=== PATIENT | male | born 1965 | race Caucasian/White ===

== ENCOUNTER 2018-08-09 23:42 | Inpatient (IN) ==
[2018-08-09] MEDS ORDERED: Sod Chloride 0.9% Inj 1,000 ML IV.SIG SCH (23:45)
[2018-08-09] MEDS ORDERED: Morphine Sulfate Inj 2 MG/ML Vial IV.PUSH ONE (23:50)
[2018-08-09] MEDS ORDERED: Orphenadrine Inj 60 MG/2 ML Ampul IM ONE (23:50)
[2018-08-09] MEDS ORDERED: Diphtheria/Tetanus/Pertussis Vaccine Inj 0.5 ML Syringe IM ONE (23:53)
[2018-08-10 00:01] LABS: Baso % (Auto) 0.5 % (0.0-2.0); Eos # (Auto) 0.2 th/mm3 (0.0-0.4); Eos % (Auto) 2.4 % (0.0-4.0); Hematocrit 45.6 % (39.0-51.0); Hemoglobin 15.4 gm/dL (13.0-17.0); Lymph % (Auto) 31.3 % (9.0-44.0); Mean Corpuscular HGB Conc 33.7 % (32.0-36.0); Mean Corpuscular Hemoglobin 31.7 pg (27.0-34.0); Mean Corpuscular Volume 94.1 fL (80.0-100.0); Mean Platelet Volume 7.9 fL (7.0-11.0); Mono # (Auto) 0.5 th/mm3 (0.0-0.9); Mono % (Auto) 7.9 % (0.0-8.0); Neut # (Auto) 3.8 th/mm3 (1.8-7.7); Neut % (Auto) 57.9 % (16.0-70.0); Platelet Count 284 th/mm3 (150-450); Red Blood Count 4.85 mil/mm3 (4.50-5.90); Red Cell Distribution Width 14.3 % (11.6-17.2); White Blood Count 6.5 th/mm3 (4.0-11.0)
[2018-08-10 00:18] LABS: Alanine Aminotransferase 57 U/L (12-78); Albumin 3.7 g/dL (3.4-5.0); Anion Gap 9 meq/L (5-15); Aspartate Aminotransferase 35 U/L (15-37); Blood Urea Nitrogen 6 mg/dL (7-18); Calcium 8.4 mg/dL (8.5-10.1); Carbon Dioxide 27.2 meq/L (21.0-32.0); Chloride 111 meq/L (98-107); Glomerular Filtration Rate Greater Than 89 mL/min (>89); Glucose,Random 113 mg/dL (74-106); Sodium 147 meq/L (136-145)
[2018-08-10 00:21] LABS: Alkaline Phosphatase 98 U/L (45-117); Creatine Kinase 270 U/L (39-308); Total Protein 7.5 g/dL (6.4-8.2)
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
[2018-08-10 00:36] LABS: Creatine Kinase MB 2.1 ng/mL (0.5-3.6)
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
[2018-08-10] MEDS ORDERED: Ketorolac Inj 30 MG/ML (IVP) Vial IV.PUSH ONE (00:43)
[2018-08-10] MEDS ORDERED: Sod Chloride 0.9% Inj 1,000 ML IV.SIG ONE ×2 (01:06→04:01)
[2018-08-10] MEDS ORDERED: Acetaminophen 500 MG Tablet PO ONE (04:01)
[2018-08-10] MEDS ORDERED: Morphine Inj 4 MG, Morphine Inj 2 MG IV.PUSH ONE ×2 (05:58)
[2018-08-10 06:40] LABS: Amphetamine Screen,Urine Neg (Neg); Barbiturate Screen,Urine Neg (Neg); Cannabinoid Screen,Urine Neg (Neg); Cocaine Screen,Urine Pos (Neg)
[2018-08-10 06:43] LABS: Bilirubin,Urine Negative (Negative); Clarity,Urine Clear (Clear); Color,Urine Yellow (Yellw/Straw); Glucose,Urine (UA) Negative (Negative); Hyaline Casts,Urine 1 /lpf (0-3); Leukocyte Esterase,Urine Negative (Negative); Mucus,Urine Few /lpf (Occasional); Nitrite,Urine Negative (Negative); Specific Gravity,Urine 1.015 (1.002-1.035)
[2018-08-10 06:49] LABS: Opiate Screen,Urine Pos (Neg)
[2018-08-10 07:43] LABS: CKMB Percent 0.6 % (0.0-4.0); Creatine Kinase MB 4.7 ng/mL (0.5-3.6)
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
[2018-08-10] MEDS ORDERED: HYDROmorphone PF Inj 2 MG/ML Vial IV.PUSH ONE (08:39)
[2018-08-10] MEDS ORDERED: Morphine Inj 4 MG/ML Vial IV.PUSH PRN ×2 (09:10)
[2018-08-10] MEDS ORDERED: Bisacodyl 10 MG Supp RECTAL PRN (09:10)
[2018-08-10] MEDS ORDERED: Naloxone Inj 0.4 MG/ML Vial IV.PUSH PRN (09:10)
[2018-08-10] MEDS ORDERED: Acetaminophen 325 MG Tablet PO PRN (09:10)
[2018-08-10] MEDS ORDERED: Haloperidol Inj 5 MG/ML Ampul IV.PUSH PRN (09:15)
[2018-08-10] MEDS: Sod Chloride 0.9% Inj 1,000 ML IV.CONT SCH (09:25)
[2018-08-10 09:42] LABS: Hematocrit 38.7 % (39.0-51.0); Mean Corpuscular HGB Conc 33.7 % (32.0-36.0); Mean Corpuscular Hemoglobin 32.3 pg (27.0-34.0); Mean Corpuscular Volume 95.9 fL (80.0-100.0); Mean Platelet Volume 8.5 fL (7.0-11.0); Platelet Count 237 th/mm3 (150-450); Red Blood Count 4.03 mil/mm3 (4.50-5.90); Red Cell Distribution Width 14.3 % (11.6-17.2); White Blood Count 8.8 th/mm3 (4.0-11.0)
[2018-08-10 10:16] LABS: Anion Gap 11 meq/L (5-15); Blood Urea Nitrogen 6 mg/dL (7-18); Calcium 7.6 mg/dL (8.5-10.1); Carbon Dioxide 22.4 meq/L (21.0-32.0); Chloride 110 meq/L (98-107); Glomerular Filtration Rate Greater Than 89 mL/min (>89); Glucose,Random 71 mg/dL (74-106); Potassium 3.4 meq/L (3.5-5.1); Sodium 143 meq/L (136-145)
[2018-08-10] MEDS: Lisinopril 20 MG Tablet PO SCH (10:22)
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
[2018-08-10 12:10] LABS: Creatine Kinase 697 U/L (39-308); Free T4 (Free Thyroxine) 0.84 ng/dL (0.76-1.46)
[2018-08-10 12:31] LABS: Hemoglobin A1c 5.6 % (4.3-6.0)
[2018-08-10] MEDS: LORazepam 1 MG Tablet PO PRN ×2 (12:36→22:34)
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
[2018-08-10] MEDS: Morphine Inj 4 MG/ML Vial IV.PUSH PRN ×2 (16:09→21:00)
[2018-08-10] MEDS: oxyCODONE/Acetaminophen 10/325 Tablet PO PRN ×2 (16:10→22:34)
[2018-08-10 20:03] LABS: Creatine Kinase 538 U/L (39-308)
[2018-08-10 20:22] LABS: CKMB Percent 0.3 % (0.0-4.0); Creatine Kinase MB 1.8 ng/mL (0.5-3.6)
[2018-08-10] MEDS: Senna/Docusate Sodium 8.6/50 MG Tablet PO SCH (20:59)
[2018-08-10] MEDS: Famotidine 20 MG Tablet PO SCH (20:59)
[2018-08-10] MEDS ORDERED: Influenza (Quadrivalent) Vaccine 0.5 ML Syringe IM ONE (21:00)
[2018-08-11] MEDS: Morphine Inj 4 MG/ML Vial IV.PUSH PRN (01:27)
[2018-08-11] MEDS: Sod Chloride 0.9% Inj 1,000 ML IV.CONT SCH ×4 (01:30→16:57)
[2018-08-11] MEDS: oxyCODONE/Acetaminophen 10/325 Tablet PO PRN ×4 (04:37→19:53)
[2018-08-11] MEDS: LORazepam 1 MG Tablet PO PRN (04:41)
[2018-08-11 05:46] LABS: Baso % (Auto) 0.4 % (0.0-2.0); Eos # (Auto) 0.4 th/mm3 (0.0-0.4); Eos % (Auto) 4.2 % (0.0-4.0); Hemoglobin 12.8 gm/dL (13.0-17.0); Lymph # (Auto) 1.5 th/mm3 (1.0-4.8); Lymph % (Auto) 17.9 % (9.0-44.0); Mean Corpuscular HGB Conc 34.6 % (32.0-36.0); Mean Corpuscular Hemoglobin 32.3 pg (27.0-34.0); Mean Corpuscular Volume 93.3 fL (80.0-100.0); Mean Platelet Volume 8.2 fL (7.0-11.0); Mono # (Auto) 0.7 th/mm3 (0.0-0.9); Mono % (Auto) 8.5 % (0.0-8.0); Neut # (Auto) 5.8 th/mm3 (1.8-7.7); Platelet Count 193 th/mm3 (150-450); Red Blood Count 3.97 mil/mm3 (4.50-5.90); White Blood Count 8.4 th/mm3 (4.0-11.0)
[2018-08-11 06:18] LABS: Prothrombin Time 10.4 sec (9.8-11.6)
[2018-08-11 06:23] LABS: Alanine Aminotransferase 32 U/L (12-78); Albumin 2.9 g/dL (3.4-5.0); Alkaline Phosphatase 86 U/L (45-117); Anion Gap 8 meq/L (5-15); Aspartate Aminotransferase 19 U/L (15-37); Blood Urea Nitrogen 7 mg/dL (7-18); Calcium 7.7 mg/dL (8.5-10.1); Chloride 108 meq/L (98-107); Glomerular Filtration Rate Greater Than 89 mL/min (>89); Glucose,Random 84 mg/dL (74-106); Magnesium 1.7 mg/dL (1.5-2.5); Phosphorus 2.8 mg/dL (2.5-4.9); Potassium 3.4 meq/L (3.5-5.1); Sodium 142 meq/L (136-145); Total Protein 6.2 g/dL (6.4-8.2)
[2018-08-11] MEDS: Morphine Sulfate Inj 2 MG/ML Vial IV.PUSH PRN ×4 (08:13→22:20)
[2018-08-11] MEDS: Multivitamin/Minerals Therapeutic Tablet PO SCH (08:14)
[2018-08-11] MEDS: Senna/Docusate Sodium 8.6/50 MG Tablet PO SCH ×2 (08:14→20:17)
[2018-08-11] MEDS: Famotidine 20 MG Tablet PO SCH ×2 (08:14→20:17)
[2018-08-11] MEDS: Lisinopril 20 MG Tablet PO SCH (08:14)
[2018-08-11] MEDS: Folic Acid 1 MG Tablet PO SCH (08:14)
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
[2018-08-11] MEDS: LORazepam 0.5 MG Tablet PO PRN (16:58)
[2018-08-12] MEDS: oxyCODONE/Acetaminophen 10/325 Tablet PO PRN ×6 (00:15→20:54)
[2018-08-12] MEDS: LORazepam 0.5 MG Tablet PO PRN (01:23)
[2018-08-12] MEDS: Morphine Inj 4 MG/ML Vial IV.PUSH PRN (02:03)
[2018-08-12] MEDS: Morphine Sulfate Inj 2 MG/ML Vial IV.PUSH PRN ×3 (05:07→14:03)
[2018-08-12 05:36] LABS: Alanine Aminotransferase 30 U/L (12-78); Albumin 2.9 g/dL (3.4-5.0); Anion Gap 7 meq/L (5-15); Aspartate Aminotransferase 23 U/L (15-37); Blood Urea Nitrogen 5 mg/dL (7-18); Calcium 8.2 mg/dL (8.5-10.1); Carbon Dioxide 27.2 meq/L (21.0-32.0); Chloride 105 meq/L (98-107); Glomerular Filtration Rate Greater Than 89 mL/min (>89); Glucose,Random 77 mg/dL (74-106); Magnesium 1.9 mg/dL (1.5-2.5); Phosphorus 3.2 mg/dL (2.5-4.9); Potassium 3.9 meq/L (3.5-5.1); Sodium 139 meq/L (136-145)
[2018-08-12 05:37] LABS: Alkaline Phosphatase 90 U/L (45-117); Total Protein 6.7 g/dL (6.4-8.2)
[2018-08-12] MEDS: Sod Chloride 0.9% Inj 1,000 ML IV.CONT SCH ×2 (07:49→12:45)
[2018-08-12] MEDS: Famotidine 20 MG Tablet PO SCH ×2 (08:11→20:53)
[2018-08-12] MEDS: Senna/Docusate Sodium 8.6/50 MG Tablet PO SCH (08:11)
[2018-08-12] MEDS: Lisinopril 20 MG Tablet PO SCH (08:11)
[2018-08-12] MEDS: Folic Acid 1 MG Tablet PO SCH (08:11)
[2018-08-12] MEDS: Multivitamin/Minerals Therapeutic Tablet PO SCH (08:13)
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
[2018-08-13] MEDS: oxyCODONE/Acetaminophen 10/325 Tablet PO PRN ×6 (00:49→22:04)
[2018-08-13] MEDS: Sod Chloride 0.9% Inj 1,000 ML IV.CONT SCH ×3 (08:43→19:16)
[2018-08-13] MEDS: Senna/Docusate Sodium 8.6/50 MG Tablet PO SCH ×3 (08:43→22:04)
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
[2018-08-13] MEDS: Lisinopril 20 MG Tablet PO SCH (09:40)
[2018-08-13] MEDS: Folic Acid 1 MG Tablet PO SCH (09:40)
[2018-08-13] MEDS: Famotidine 20 MG Tablet PO SCH ×2 (09:40→22:04)
[2018-08-13] MEDS: Multivitamin/Minerals Therapeutic Tablet PO SCH (09:41)
[2018-08-14] MEDS: oxyCODONE/Acetaminophen 10/325 Tablet PO PRN ×6 (02:11→22:44)
[2018-08-14] MEDS: Sod Chloride 0.9% Inj 1,000 ML IV.CONT SCH ×3 (07:55→23:45)
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
[2018-08-14] MEDS: Famotidine 20 MG Tablet PO SCH ×2 (09:44→20:46)
[2018-08-14] MEDS: Senna/Docusate Sodium 8.6/50 MG Tablet PO SCH ×2 (09:44→20:46)
[2018-08-14] MEDS: Lisinopril 20 MG Tablet PO SCH (09:44)
[2018-08-14] MEDS: Folic Acid 1 MG Tablet PO SCH (09:44)
[2018-08-14] MEDS: Multivitamin/Minerals Therapeutic Tablet PO SCH (09:48)
[2018-08-15] MEDS: oxyCODONE/Acetaminophen 10/325 Tablet PO PRN ×4 (02:44→14:40)
[2018-08-15 08:45] VITALS: RESP 20; TEMP 98.2
[2018-08-15] MEDS: Folic Acid 1 MG Tablet PO SCH (08:48)
[2018-08-15] MEDS: Famotidine 20 MG Tablet PO SCH (08:48)
[2018-08-15] MEDS: Senna/Docusate Sodium 8.6/50 MG Tablet PO SCH (08:48)
[2018-08-15] MEDS: Multivitamin/Minerals Therapeutic Tablet PO SCH (08:48)
[2018-08-15] MEDS: Lisinopril 20 MG Tablet PO SCH (08:53)
[2018-08-15] MEDS: Sod Chloride 0.9% Inj 1,000 ML IV.CONT SCH (08:53)
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
[2018-08-15 13:36] VITALS: BP 137/81; PULSE 86; O2SAT 97
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
== END 2018-08-15 16:24 | disposition home or self-care (01) ==
LOC: NEDA 23:42 → NEPD 23:42 → NEDA 08-10 11:06 → N06 08-10 11:14
PROVIDERS: ADMIT Internal Medicine; ATTEND Internal Medicine